=== PATIENT | female | born 1985 | race Caucasian/White ===

== ENCOUNTER 2018-04-10 14:37 | Emergency (ER) | payer OTHER ==
[~2018-04-10] VITALS: Ht 157.5 cm; Wt 66.7 kg
[2018-04-10 14:48] VITALS: Ht 157.5 cm; Wt 66.7 kg
[2018-04-10 16:33] LABS: BASOPHIL % 0.4 % (0-2); PLATELET COUNT 300 x10^3mcL (130-400); RED CELL DISTRIBUTION WIDTH 13.4 % (11.5-14.5)
[2018-04-10 17:43] VITALS: BP 140/81
== END 2018-04-10 17:42 | disposition home or self-care (01) ==
LOC: ED 14:37
PROVIDERS: Emergency Medicine
DX: N92.0 Excessive and frequent menstruation with regular cycle (principal); N83.209 Unspecified ovarian cyst, unspecified side; Z88.0 Allergy status to penicillin
CPT/HCPCS: 36415